=== PATIENT | male | born 1970 | race Caucasian/White ===

== ENCOUNTER 2021-02-08 15:58 | Emergency (ER) | payer MEDICAID ==
[~2021-02-08] VITALS: Ht 172.7 cm; Wt 79.5 kg
[2021-02-08 16:00] VITALS: BP 125/76
[2021-02-08] MEDS ORDERED: LIDOCAINE 1%/EPI 1:200,000/PF 30 ML VIAL PERC ONE (16:45)
[2021-02-08] MEDS ORDERED: BACITRACIN 0.9 GM PACKET OINTMENT TP ONE (17:45)
== END 2021-02-08 17:55 | disposition home or self-care (01) ==
LOC: EMS 15:58
DX: M25.461 Effusion, right knee (principal); M79.89 Other specified soft tissue disorders
CPT/HCPCS: 10160; 99284; J3490; 20610; 99283

== ENCOUNTER 2021-04-03 17:26 | Emergency (ER) | payer MEDICAID ==
[~2021-04-03] VITALS: Ht 172.7 cm; Wt 79.5 kg
[2021-04-03] MEDS ORDERED: MELO-107 PO (17:33)
[2021-04-03 19:20] VITALS: BP 135/66
[2021-04-03] MEDS ORDERED: LIDOCAINE 1% 10 ML VIAL SQ ONE (19:30)
== END 2021-04-03 20:00 | disposition home or self-care (01) ==
LOC: EMS 17:26
DX: M25.461 Effusion, right knee (principal)
CPT/HCPCS: 20610; 87070; 99283; J3490; 87205